=== PATIENT | female | born 1960 | race Caucasian/White ===

== ENCOUNTER 2018-10-27 21:38 | Emergency (ER) | payer SELFPAY ==
[~2018-10-27] VITALS: Ht 162.6 cm; Wt 56.7 kg
--- NOTE | 2018-10-27 21:45 | NUR ---
PT ELICIA. C/O "FOUND ON THE STREET, SEEMS LIKE SHE TOOK DRUGS" ACCORDING TO RA. -SOB NOTED. -ACUTE DISTRESS. AOX1. RESPONSIVE TO PAIN/VERBAL STIMULI.
[2018-10-27] MEDS ORDERED: OLANZAPINE 10 MG VIAL IM ONE ×2 (21:54→22:00)
[2018-10-27] MEDS ORDERED: LORAZEPAM INJ 2 MG/ML VIAL ONE (21:55)
[2018-10-27] MEDS ORDERED: LORAZEPAM INJ 2 MG/ML VIAL IM ONE (22:00)
--- NOTE | 2018-10-27 22:03 | NUR ---
Note undsusan in EDM - 10/27/18 at 2206 by GZAKARYAN PT BIBRA/PD. C/O "FOUND ON THE STREET BY BYSTANDERS, UNABLE TO OBTAIN INFORMATION FROM RA" -SOB NOTED. PT DOES NOT SEEM TO BE IN DISTRESS. ALERT/RESPONSIVE TO PAIN/TOUCH.
[2018-10-27 22:04] LABS: BASOPHILS # (AUTO) 0.1 /CMM (0.0-0.2); BASOPHILS % (AUTO) 0.7 % (0.0-2.0); HEMATOCRIT 40 % (33-45); HEMOGLOBIN 13.2 g/dL (11.5-14.8); LYMPHOCYTES # (AUTO) 1.8 /CMM (0.8-4.8); LYMPHOCYTES % (AUTO) 18.7 % (20.0-44.0); MEAN CORPUSCULAR HGB CONC 33 g/dl (31.0-36.0); MEAN CORPUSCULAR VOLUME 88 fL (82-100); MONOCYTES # (AUTO) 0.8 /CMM (0.1-1.30); MONOCYTES % (AUTO) 8.6 % (2.0-12.0); PLATELET COUNT (AUTO) 333 /CMM (150-450); RED BLOOD CELL COUNT(AUTO) 4.58 MIL/uL (4.0-5.2); WHITE BLOOD COUNT (AUTO) 9.7 K/uL (4.3-11.0)
[2018-10-27 22:11] LABS: CARBON DIOXIDE 25 mmol/L (21-32); CHLORIDE 109 mmol/L (98-107); CREATININE 1.9 mg/dL (0.6-1.3); GLUCOSE 120 mg/dL (74-106); POTASSIUM 4.7 mmol/L (3.5-5.1); SODIUM SERUM 148 mmol/L (136-145); UREA NITROGEN, BLOOD 34 mg/dL (7-18)
[2018-10-27 22:19] LABS: ACETAMINOPHEN 0 ug/ml (10-30); ALANINE AMINOTRANSFERASE 23 U/L (12-78); ALBUMIN 4.4 g/dL (3.4-5.0); ALCOHOL, BLOOD < 3 mg/dL (0-0); ALKALINE PHOSPHATASE 78 U/L (46-116); ASPARTATE AMINOTRANSFERASE 40 U/L (15-37); BILIRUBIN,DIRECT 0.2 mg/dL (0.0-0.2); BILIRUBIN,TOTAL 0.5 mg/dL (0.2-1.0); SALICYLATE 2.4 mg/dL (2.8-20.0); TOTAL PROTEIN, SERUM 8.4 g/dL (6.4-8.2)
--- NOTE | 2018-10-27 22:30 | NUR ---
URINE COLLECTED AND SENT TO LAB
[2018-10-27 22:46] LABS: APPEARANCE,URINE Clear (CLEAR); BILIRUBIN,URINE MODERATE (NEGATIVE); BLOOD, URINE Moderate Ery/uL (NEGATIVE); COLOR,URINE Yellow (YELLOW); KETONES,URINE 15 (NEGATIVE); LEUKOCYTE ESTERASE ,URINE Negative (NEGATIVE); NITRITE, URINE Negative (NEGATIVE); PROTEIN,URINE 100 mg/dl (NEGATIVE); UGLUCOSE Negative (NEGATIVE); UROBILINOGEN,URINE 0.2 EU/dL (0.2)
[2018-10-27] MEDS ORDERED: IV NS 0.9% 1,000 ML BAG IV ONE (23:00)
[2018-10-27 23:20] LABS: BACTERIA,URINE None seen /HPF (None Seen); RBC,URINE 0-2 /HPF (0-2); SQUAMOUS EPITHELIAL CELL,UR Few /HPF (None Seen); WBC,URINE 0-2 /HPF (0-3)
--- NOTE | 2018-10-28 00:01 | NUR ---
BED 212-2
--- NOTE | 2018-10-28 00:31 | NUR ---
GERI GRIMALDO PROGRAM ATTENDANT SPOKE WITH ART CAPILLA INGOT CAR OPERATOR. PER ART, PT TO STAY IN ED AND BE RE-EVALUATED IN AM.
[2018-10-28] MEDS ORDERED: HALOPERIDOL LACTATE INJ 5 MG/ML VIAL ONE (04:22)
[2018-10-28] MEDS ORDERED: HALOPERIDOL LACTATE INJ 5 MG/ML VIAL IM ONE (04:30)
--- NOTE | 2018-10-28 10:12 | NUR ---
ART PAINTER SPRING CALLED FOR RE EVAL.
--- NOTE | 2018-10-28 10:45 | NUR ---
PT PROVIDED W/ MEAL TRAY.
--- NOTE | 2018-10-28 12:11 | NUR ---
ART NAIL WELTER AT BEDSIDE FOR PSYCH EVAL.
--- NOTE | 2018-10-28 12:52 | NUR ---
PT STATES NOT HOMELESS AND PROVIDED APARTMENT ADDRESS.
--- NOTE | 2018-10-28 13:08 | NUR ---
PT IS AWAKE. AAO. STEADY GAIT. MEDICALLY AND PSYCH CLEARED. PT PROVIDED W/ TAPCARD. IVHL D/C'D. DC HOME STABLE CONDITION.
[2018-10-28 13:12] VITALS: BP 133/76
== END 2018-10-28 13:12 | disposition home or self-care (01) ==
LOC: ER 21:38
DX: F28 Other psychotic disorder not due to a substance or known physiological condition (principal); N28.9 Disorder of kidney and ureter, unspecified; M62.82 Rhabdomyolysis; R45.1 Restlessness and agitation
CPT/HCPCS: 36415; 70450; 80048; 80076; 80305; 80307; 80329; 81001; 82550; 85025; 96372 ×2; 99284; G0480; J1630; J2060; J3490; J7030; 81000-TC